=== PATIENT | female | born 1955 | race Caucasian/White ===

== ENCOUNTER 2023-05-29 10:04 | Emergency (ER) | payer MEDICARE, OTHER ==
--- NOTE | 2023-05-29 10:18 | ED Lower Extremity ---
General Stated Complaint: CELLULITIS History of Present Illness Date Seen by Provider: May 29, 2023 Time Seen by Provider: 10:10 Initial Comments 57-year-old female with PMH of arthritis, is here with complaints of left upper thigh redness and swelling and pain for the past few days. Patient went to urgent care on , May 26, and was given a prescription for doxycycline twice a day which she has been taking. Patient marked the area of swelling herself when she went to urgent care, and today she noticed that it is getting worse and spreading approximately 2 inches beyond where she marked. Patient is unsure if she has fever or chills. Denies discharge, any known insect bite, shortness of breath, chest pain, palpitations. Allergies and Home Medications Allergies Coded Allergies: Sulfa (Sulfonamide Antibiotics) (Verified Allergy, Unknown, 05/29/23) prochlorperazine (Verified Allergy, Unknown, 05/29/23) Patient Home Medication List Home Medication List Reviewed: Yes Review of Systems Constitutional: no symptoms reported EENTM: no symptoms reported Respiratory: no symptoms reported Cardiovascular: no symptoms reported Gastrointestinal: no symptoms reported Genitourinary: no symptoms reported Musculoskeletal: no symptoms reported Skin: see HPI, change in color Psychiatric/Neurological: No Symptoms Reported Physical Exam Vital Signs Vital Signs - First Documented 05/29/23 10:09 Temp 37.0 Pulse 121 Resp 16 B/P (MAP) 114/89 (97) Pulse Ox 99 O2 Delivery Room Air Capillary Refill : Height, Weight, BMI Height: '" Weight: lbs. oz. kg; BMI Method: General Appearance: WD/WN, no apparent distress HEENT: PERRL/EOMI Neck: full range of motion Cardiovascular: regular rate, rhythm, no edema, no murmur Respiratory: lungs clear, normal breath sounds Legs: left leg other (Left inner thigh shows a large circumferential area of erythema, demarcated swelling and tenderness which is NOT warm to touch, which measures approximately 8 inches diameter, and there appears to be a small possibility of a puncture harris in the center of this area. Swelling is nonpitting.) Progress/Results/Core Measures Results/Orders Lab Results Laboratory Tests Test 05/29/23 10:15 Range/Units White Blood Count 16.3 H 4.3-11.0 10^3/uL Red Blood Count 4.62 3.80-5.11 10^6/uL Hemoglobin 14.6 11.5-16.0 g/dL Hematocrit 44 35-52 % Mean Corpuscular Volume 94 80-99 fL Mean Corpuscular Hemoglobin 32 25-34 pg Mean Corpuscular Hemoglobin Concent 34 32-36 g/dL Red Cell Distribution Width 12.3 10.0-14.5 % Platelet Count 140 130-400 10^3/uL Mean Platelet Volume 10.6 9.0-12.2 fL Immature Granulocyte % (Auto) 1 % Neutrophils (%) (Auto) 87 H 42-75 % Lymphocytes (%) (Auto) 2 L 12-44 % Monocytes (%) (Auto) 3 0-12 % Eosinophils (%) (Auto) 7 0-10 % Basophils (%) (Auto) 1 0-10 % Neutrophils # (Auto) 14.1 H 1.8-7.8 10^3/uL Lymphocytes # (Auto) 0.3 L 1.0-4.0 10^3/uL Monocytes # (Auto) 0.5 0.0-1.0 10^3/uL Eosinophils # (Auto) 1.1 H 0.0-0.3 10^3/uL Basophils # (Auto) 0.1 0.0-0.1 10^3/uL Immature Granulocyte # (Auto) 0.2 H 0.0-0.1 10^3/uL Neutrophils % (Manual) 86 % Lymphocytes % (Manual) 6 % Monocytes % (Manual) 3 % Eosinophils % (Manual) 5 % Prothrombin Time 12.3 12.2-14.7 SEC INR Comment 0.9 0.8-1.4 Activated Partial Thromboplast Time 27 24-35 SEC D-Dimer 2.88 H 0.00-0.49 UG/ML Sodium Level 129 L 135-145 MMOL/L Potassium Level 3.2 L 3.6-5.0 MMOL/L Chloride Level 91 L 98-107 MMOL/L Carbon Dioxide Level 23 21-32 MMOL/L Anion Gap 15 H 5-14 MMOL/L Blood Urea Nitrogen 20 H 7-18 MG/DL Creatinine 0.80 0.60-1.30 MG/DL Estimat Glomerular Filtration Rate 80 BUN/Creatinine Ratio 25 Glucose Level 97 70-105 MG/DL Lactic Acid Level 1.69 0.50-2.00 MMOL/L Calcium Level 9.6 8.5-10.1 MG/DL Corrected Calcium 9.8 8.5-10.1 MG/DL Total Bilirubin 2.0 H 0.1-1.0 MG/DL Aspartate Amino Transf (AST/SGOT) 88 H 5-34 U/L Alanine Aminotransferase (ALT/SGPT) 135 H 0-55 U/L Alkaline Phosphatase 195 H 40-136 U/L Total Protein 7.2 6.4-8.2 GM/DL Albumin 3.7 3.2-4.5 GM/DL My Orders Orders - TACOS TADEO MD Cbc With Automated Diff (05/29/23 10:29) Comprehensive Metabolic Panel (05/29/23 10:29) Fibrin Degradation Products (05/29/23 10:29) Lactic Acid Analyzer (05/29/23 10:29) Protime With Inr (05/29/23 10:29) Partial Thromboplastin Time (05/29/23 10:29) Manual Differential (05/29/23 10:15) Vital Signs/I&O 05/29/23 10:09 Temp 37.0 Pulse 121 Resp 16 B/P (MAP) 114/89 (97) Pulse Ox 99 O2 Delivery Room Air Progress Progress Note : Progress Note 1. CELLULITIS vs DVT OF LEFT THIGH - CBC: White count is elevated at 16.3 with a left shift -D-dimer is elevated, 2.88 -Asymptomatic borderline low sodium level of 129 and potassium 3.2. Will need to follow-up with PCP for follow-up of labs. -LFTs are elevated and will need work-up with PCP -Since there appears to be some type of puncture harris in the center of her cellulitic area, there is a possibility of a spider or insect bite that has triggered this as well. Differentials include cellulitis, spider or insect bite, DVT. - Elevated d-dimer at 2.88, will need ultrasound which we do not have here in the ER today. Outpatient Doppler ultrasound ordered for tomorrow morning, can go to [facility] at 7:30 AM to do this, or make appointment at [facility] to get the ultrasound done. -Lovenox subcutaneous given in ER and will prescribe second dose for patient -Patient is taking doxycycline already, will add Keflex 500 mg 4 times daily for 7 days. If ultrasound happens to be negative and the erythema is worsening or spreading, will need to come back in for IV antibiotics. -Follow-up with PCP within the next 7 days - If shortnes of breath or chest pain occurs, return to ER right away -The patient was seen in the ED, and treated appropriately to presentation at a specific point in time. Patient is informed that there is a possibility that disease and illness can evolve and change in acuity rapidly or slowly after patient is discharged from the ER. Precautionary advice given to the patient for immediate return to ER if symptoms worsen or do not resolve, and to seek emergency care sooner rather than later. Pt also advised on the importance of PCP follow up and compliance with management and follow up plan with PCP and/or specialist, as this is part of the management plan. Pt verbally expressed understanding. Departure Impression Primary Impression: Elevated d-dimer Additional Impression: Cellulitis Qualified Codes: L03.116 - Cellulitis of left lower limb Disposition: HOME, SELF-CARE Condition: Stable Departure-Patient Inst. Referrals: GEOVANNA VANN DPEdison (PCP) Primary Care Physician Patient Instructions: Cellulitis (Skin Infection), Adult (DC), Deep Vein Thrombosis (DVT) ED Add. Discharge Instructions: - Elevated d-dimer at 2.88, will need ultrasound which we do not have here in the ER today. Outpatient Doppler ultrasound ordered for tomorrow morning, can go to [facility] at 7:30 AM to do this, or make appointment at [facility] to get the ultrasound done. -Lovenox subcutaneous given in ER and will prescribe second dose for patient -Patient is taking doxycycline already, will add Keflex 500 mg 4 times daily for 7 days. If ultrasound happens to be negative and the erythema is worsening or spreading, will need to come back in for IV antibiotics. -Follow-up with PCP within the next 7 days for CBC, BMP and LFT lab recheck Scripts Cephalexin (Cephalexin) 500 Mg Tablet 500 MG PO QID for 7 Days, #28 TAB Prov: TACOS TADEO MD 05/29/23 Enoxaparin Sodium (Lovenox) 80 Mg/0.8 Ml Syringe 70 MG SQ BID for 1 Day, #2 EA Prov: TACOS TADEO MD 05/29/23 TACOS TADEO MD May 29, 2023 10:18
[2023-05-29 10:32] LABS: BASOPHILS # (AUTO) 0.1 10^3/uL (0.0-0.1); BASOPHILS % (AUTO) 1 % (0-10); EOSINOPHILS # (AUTO) 1.1 10^3/uL (0.0-0.3); EOSINOPHILS % (AUTO) 7 % (0-10); HEMATOCRIT 44 % (35-52); HEMOGLOBIN 14.6 g/dL (11.5-16.0); LYMPHOCYTES # (AUTO) 0.3 10^3/uL (1.0-4.0); LYMPHOCYTES % (AUTO) 2 % (12-44); MEAN CORPUSCULAR HEMOGLOBIN 32 pg (25-34); MEAN CORPUSCULAR HGB CONC 34 g/dL (32-36); MEAN CORPUSCULAR VOLUME 94 fL (80-99); MEAN PLATELET VOLUME 10.6 fL (9.0-12.2); MONOCYTES # (AUTO) 0.5 10^3/uL (0.0-1.0); MONOCYTES % (AUTO) 3 % (0-12); NEUTROPHILS # (AUTO) 14.1 10^3/uL (1.8-7.8); NEUTROPHILS % (AUTO) 87 % (42-75); PLATELET COUNT 140 10^3/uL (130-400); WHITE BLOOD COUNT 16.3 10^3/uL (4.3-11.0)
[2023-05-29 10:34] LABS: INR 0.9 (0.8-1.4); PROTHROMBIN TIME PATIENT 12.3 SEC (12.2-14.7)
[2023-05-29 10:44] LABS: CREATININE SERUM 0.8 MG/DL (0.60-1.30); POTASSIUM 3.2 MMOL/L (3.6-5.0)
[2023-05-29 10:45] LABS: ALBUMIN 3.7 GM/DL (3.2-4.5); CALCIUM 9.6 MG/DL (8.5-10.1); TOTAL PROTEIN 7.2 GM/DL (6.4-8.2)
[2023-05-29 10:48] LABS: EOSINOPHILS % (MANUAL) 5 %; LYMPHOCYTES % (MANUAL) 6 %; MONOCYTES % (MANUAL) 3 %; NEUTROPHILS % (MANUAL) 86 %
[2023-05-29 10:55] LABS: FIBRIN DEGRADATION PRODUCTS 2.88 UG/ML (0.00-0.49)
[2023-05-29] MEDS ORDERED: ENOXAPARIN 80 MG/0.8 ML (LOVENOX) SYR SC ONE (11:45)
[2023-05-29] MEDS ORDERED: ENOX80DI12 SQ (11:52)
[2023-05-29] MEDS ORDERED: CEPH500T PO (11:52)
[2023-05-29 11:58] VITALS: BP 114/89
== END 2023-05-29 11:59 | disposition home or self-care (01) ==
LOC: EDUNIT# 10:04 → ER FS 10:06
DX: L03.116 Cellulitis of left lower limb (principal); R79.1 Abnormal coagulation profile; Z88.2 Allergy status to sulfonamides
CPT/HCPCS: 36415; 80053; 83605; 85007; 85027; 85379; 85610; 85730

== ENCOUNTER → 2023-06-01 | Outpatient (CLI) | payer MEDICARE, OTHER ==
[~2023-06-01] MED LIST: CEPH500T PO; ENOX80DI12 SQ
[2023-06-01 15:10] LABS: BASOPHILS # (AUTO) 0.2 10^3/uL (0.0-0.1); BASOPHILS % (AUTO) 2 % (0-10); EOSINOPHILS # (AUTO) 0.5 10^3/uL (0.0-0.3); EOSINOPHILS % (AUTO) 6 % (0-10); HEMATOCRIT 40 % (35-52); HEMOGLOBIN 13.6 g/dL (11.5-16.0); LYMPHOCYTES # (AUTO) 2.1 10^3/uL (1.0-4.0); LYMPHOCYTES % (AUTO) 26 % (12-44); MEAN CORPUSCULAR HEMOGLOBIN 32 pg (25-34); MEAN CORPUSCULAR HGB CONC 34 g/dL (32-36); MEAN CORPUSCULAR VOLUME 94 fL (80-99); MONOCYTES # (AUTO) 0.9 10^3/uL (0.0-1.0); MONOCYTES % (AUTO) 11 % (0-12); NEUTROPHILS % (AUTO) 49 % (42-75); PLATELET COUNT 248 10^3/uL (130-400); WHITE BLOOD COUNT 8.2 10^3/uL (4.3-11.0)
[2023-06-01 15:16] LABS: BILIRUBIN,TOTAL 0.8 MG/DL (0.1-1.0); CALCIUM 9.6 MG/DL (8.5-10.1); CREATININE SERUM 0.51 MG/DL (0.60-1.30); POTASSIUM 3.5 MMOL/L (3.6-5.0)
[2023-06-01 15:17] LABS: ALBUMIN 3.5 GM/DL (3.2-4.5); TOTAL PROTEIN 6.3 GM/DL (6.4-8.2)
[2023-06-01 16:00] LABS: BAND NEUTROPHILS 11 %; BASOPHILS % (MANUAL) 0 %; EOSINOPHILS % (MANUAL) 6 %; LYMPHOCYTES % (MANUAL) 22 %; MONOCYTES % (MANUAL) 16 %; NEUTROPHILS % (MANUAL) 41 %
[2023-06-01 16:01] LABS: METAMYELOCYTES % 2 %; MYELOCYTES % 2 %; PLATELET ESTIMATE NORMAL; RBC MORPH NORMAL
== END ==
LOC: LAB FS 14:33
PROVIDERS: ATTEND Registered Nurse Emergency
DX: L03.116 Cellulitis of left lower limb (principal); R50.9 Fever, unspecified
CPT/HCPCS: 36415; 80053; 83605; 85007; 85027; 86141